=== PATIENT | male | born 1975 | race Caucasian/White ===

== ENCOUNTER 2016-12-03 00:04 | Emergency (ER) | payer MEDICAID | END 2016-12-03 01:10 | disposition home or self-care (01) | LOC: ER 00:04 | DX: S93.622A Sprain of tarsometatarsal ligament of left foot, initial encounter (principal); W18.49XA Other slipping, tripping and stumbling without falling, initial encounter; Y92.481 Parking lot as the place of occurrence of the external cause; F17.210 Nicotine dependence, cigarettes, uncomplicated; F12.10 Cannabis abuse, uncomplicated ==